=== PATIENT | female | born 1985 | race Caucasian/White ===

== ENCOUNTER → 2016-06-11 | Outpatient (CLI) | payer OTHER ==
[~2016-06-11] MED LIST: ACHD5005 PO; ALPR.25T PO; CATHETER FLUSH 10 ML SYR IV PRN; DCS100C PO; DOXY100C2 PO; FERR-57 PO; FERR325C PO; GLYB2.5T4 PO; HYDR-3583 PO; HYDR-3812 PO; IBP600T1 PO; INSASP10V SQ; IOHEXOL 350 MG/ML 100 ML (OMNIPAQUE 350) VIAL IV ONE; Ibuprofen PO; METH0.2T45 PO; MTF500T PO; MTF500TCR PO; NITR100C PO; NOVOLIN N SQ; NS 100 ML (IVPB) BAG IV ONE; ONDN4T PO; OXYC-12 PO; PREN1TAB39 PO; SMT80CT PO
--- OUTSIDE RECORDS SUMMARY | 2016-06-11 13:55 | XMS REPORT | Continuity of Care Document ---
Author Author [facility] Organization [facility] Address Unknown Phone Unavailable Allergies Active Description Code Type Severity Reaction Onset Reported/Identified Relationship to Patient Clinical Status Yes CLEAR TAPE CLEAR TAPE Mild N/A 08/24/2012 Medications Problems Date Dx Coded Attending Type Code Diagnosis Diagnosed By 11/23/2013 DANAE SEO DO Ot 285.1 AC POSTHEMORRHAG ANEMIA 11/23/2013 DANAE SEO DO Ot 285.9 ANEMIA NOS 11/23/2013 DANAE SEO DO Ot 648.21 ANEMIA-DELIVERED 11/23/2013 DANAE SEO DO Ot 648.22 ANEMIA-DELIVERED W P/P 11/23/2013 DANAE SEO DO Ot 648.81 ABN GLUCOSE RANCHO-DELIV 11/23/2013 DANAE SEO DO Ot 654.21 PREV DELIVRY W/ OR W/O MENT ANT 11/23/2013 DANAE SEO DO Ot V06.1 [id number], COMBINED [ 11/23/2013 DANAE SEO DO Ot V27.0 DELIVER-SINGLE LIVEBORN 11/23/2013 DANAE SEO DO Ot V58.67 LONG-TERM (CURRENT) USE OF INSULIN 05/01/2014 DANAE SEO DO Ot 640.03 05/01/2014 DANAE SEO DO Ot 640.03 08/09/2015 DANAE SEO DO Ot 640.03 08/16/2015 DANAE SEO DO Ot 640.03 THREATEN ABORT-ANTEPART 10/01/2015 DANAE SEO DO Ot 640.03 THREATEN ABORT-ANTEPART 06/05/2016 DANAE SEO DO Ot 640.03 THREATEN ABORT-ANTEPART Procedures Code Description Performed By Performed On 74.1 LOW CERVICAL 11/20/2013 99.77 APPL/ADMIN OF AN ADHESION BARRIER SUBSTA 11/20/2013 Results Encounters ACCT No. Visit Date/Time Discharge Status Pt. Type Provider Facility Loc./Unit Complaint [id number] 11/20/2013 10:25:00 2013 11:20:00 DIS Inpatient DANAE SEO DO [facility] LDRP PREVIOUS SECTION; RUPTURED MEMBRANES [id number] 04/21/2013 12:01:00 2012 23:59:59 CLS Outpatient DANAE SEO DO [facility] RAD BLEEDING;THREATENED
--- NOTE | 2016-06-11 14:57 | Diagnostic Imaging Report ---
PROCEDURE: CT abdomen and pelvis with contrast. TECHNIQUE: Multiple contiguous axial images were obtained through the abdomen and pelvis after administration of intravenous contrast. INDICATION: Abdominal pain. 100 mL of Omnipaque 350 is administered intravenously. FINDINGS: Lung bases appear clear. The liver, the gallbladder, the spleen, the adrenal glands appear unremarkable. The kidneys have symmetric enhancement and contrast excretion. There is no hydronephrosis. The abdominal aorta is normal in caliber. No significantly enlarged lymph nodes seen. There is diastasis of the recti and superimposed small fat-containing umbilical hernia. There is an IUD in the uterus which is retroflexed. There is no bowel obstruction. There is no free fluid or fluid collection in the abdomen or pelvis seen. The osseous structures appear grossly unremarkable. IMPRESSION: There is diastasis of the recti and a tiny fat-containing umbilical hernia. Dictated by: Dictated on workstation # [id number]
== END ==
LOC: RAD 13:52
PROVIDERS: ATTEND Nurse Practitioner Family
DX: Q79.59 Other congenital malformations of abdominal wall (principal); R10.31 Right lower quadrant pain; R10.32 Left lower quadrant pain; R10.13 Epigastric pain
CPT/HCPCS: 74177

== ENCOUNTER → 2016-07-09 | Outpatient (CLI) | payer OTHER ==
[~2016-07-09] MED LIST changes: -CATHETER FLUSH 10 ML SYR IV PRN; -IOHEXOL 350 MG/ML 100 ML (OMNIPAQUE 350) VIAL IV ONE; -NS 100 ML (IVPB) BAG IV ONE
--- OUTSIDE RECORDS SUMMARY | 2016-07-09 15:17 | XMS REPORT | Continuity of Care Document ---
Author Author [facility] Organization [facility] Address Unknown Phone Unavailable Allergies Active Description [...] ANT 11/23/2013 DANAE SEO DO Ot V06.1 [id number], COMBINED [ 11/23/2013 DANAE SEO DO Ot V27.0 DELIVER-SINGLE LIVEBORN 11/23/2013 DANAE SEO DO Ot V58.67 LONG-TERM (CURRENT) USE OF INSULIN 05/01/2014 DANAE SEO DO Ot 640.03 05/01/2014 DANAE SEO DO Ot 640.03 08/09/2015 DANAE SEO DO Ot 640.03 08/16/2015 DANAE SEO DO Ot 640.03 THREATEN ABORT-ANTEPART 10/01/2015 DANAE SEO DO Ot 640.03 THREATEN ABORT-ANTEPART 06/05/2016 DANAE SEO DO Ot 640.03 THREATEN ABORT-ANTEPART 06/16/2016 BRODIE LINDSAY APRN Ot 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 Visit Date/Time Discharge Status Pt. Type Provider Facility Loc./Unit Complaint [id number] 11/20/2013 10:25:00 2013 11:20:00 DIS Inpatient DANAE SEO DO [facility] LDRP PREVIOUS SECTION; RUPTURED MEMBRANES [id number] 04/21/2013 12:01:00 2012 23:59:59 CLS Outpatient DANAE SEO DO [facility] RAD BLEEDING;THREATENED [id number] 06/11/2016 13:52:00 ACT Outpatient BRODIE LINDSAY APRN [facility] RAD LLQ PAIN,RLQ PAIN,EPIGASTRIC PAIN
--- NOTE | 2016-07-09 19:44 | Diagnostic Imaging Report ---
Pelvic ultrasound. INDICATION: Pelvic pain. FINDINGS: There are no previous ultrasound examinations available for comparison. The CT abdomen/pelvis exam performed on 06/11/2016 did note an IUD within the uterus. On this study, the IUD is again identified within the endometrium of the body/fundus of the uterus. The IUD seems to be in good position. The uterus itself is nongravid and not enlarged measuring 4.9 x 5.2 x 4.1 cm. I do feel that the length of the uterus is under measured as the uterus appears to be retroflexed. The endometrial lining of the uterus is not thickened measuring 5-6 mm. There is no focal mass involving the uterus to suggest a fibroid. Both ovaries are identified. The ovaries are generally unremarkable. There are few subcentimeter follicles on each ovary. There is no solid pelvic mass identified, but there is a small amount of nonspecific free fluid. IMPRESSION: 1. Aside from a small amount of nonspecific free fluid, there is no acute abnormality of the pelvis. 2. There is an IUD within the endometrium of the uterus. Dictated by: Dictated on workstation # [id number]
== END ==
LOC: RAD 15:13
PROVIDERS: ATTEND Surgery
DX: R10.31 Right lower quadrant pain (principal)
CPT/HCPCS: 76830; 76856

== ENCOUNTER 2016-08-13 05:34 | Outpatient (CLI) | payer OTHER ==
[~2016-08-13] VITALS: Ht 157.5 cm; Wt 81.9 kg
[~2016-08-13 05:34] MED LIST changes: -HYDR-3812 PO; -ONDN4T PO
[2016-08-19] MEDS ORDERED: HYDR-3812 PO (09:43)
== END 2016-08-13 13:04 ==
LOC: PREOP 05:34
PROVIDERS: ATTEND Surgery
DX: Z01.818 Encounter for other preprocedural examination (principal); K43.9 Ventral hernia without obstruction or gangrene

== ENCOUNTER 2016-08-19 05:51 | Day surgery (SDC) | payer OTHER ==
[~2016-08-19] VITALS: Ht 157.5 cm; Wt 81.9 kg
[2016-08-19] MEDS ORDERED: PREGABALIN 75 MG (LYRICA) CAP PO ONE ×3 (06:15→09:45)
[2016-08-19] MEDS ORDERED: morphine INJ 4 MG/ML 1 ML (VIAL/SYRINGE) IV PRN ×2 (06:15→09:45)
[2016-08-19] MEDS ORDERED: oxyCODONE ER 10 MG (OxyCONTIN CR) TAB PO ONE ×4 (06:15→09:45)
[2016-08-19] MEDS ORDERED: ACETAMINOPHEN 500 MG TAB (TYLENOL) PO ONE ×3 (06:15→09:45)
[2016-08-19] MEDS ORDERED: CELECOXIB 100 MG (CeleBREX) CAP PO ONE ×5 (06:15→09:45)
[2016-08-19] MEDS ORDERED: LACTATED RINGERS 1,000 ML IV SCH (06:15)
[2016-08-19] MEDS ORDERED: LACTATED RINGERS 1,000 ML IV PRN (06:28)
[2016-08-19 06:30] VITALS: BP 119/74
[2016-08-19] MEDS ORDERED: FAMOTIDINE 20MG/2ML IV (PEPCID) IV ONE (06:30)
[2016-08-19] MEDS ORDERED: ONDANSETRON 4 MG/2 ML (SDV) Z0FRAN IV ONE (06:30)
[2016-08-19] MEDS ORDERED: MIDAZOLAM 2 MG/2 ML (VERSED) VIAL IV ONE (06:30)
[2016-08-19] MEDS ORDERED: DEXAMETHASONE PF 10 MG/ML (DECADRON) VIAL ONE (06:51)
[2016-08-19] MEDS ORDERED: ONDANSETRON 4 MG/2 ML (SDV) Z0FRAN ONE (06:51)
[2016-08-19] MEDS ORDERED: KETAMINE HCL 100 MG/ML 5 ML VIAL ONE (06:52)
[2016-08-19] MEDS ORDERED: ROCURONIUM 50 MG/5 ML (ZEMURON) VIAL IV ONE (06:52)
[2016-08-19] MEDS ORDERED: LIDOCAINE PF 2% 10 ML (XYLOCAINE) AMP ONE (06:52)
[2016-08-19] MEDS ORDERED: MIDAZOLAM 2 MG/2 ML (VERSED) VIAL ONE (06:52)
[2016-08-19] MEDS ORDERED: SEVOFLURANE (ULTANE) 15 ML INHAL SOLN ONE ×2 (06:52→09:57)
[2016-08-19] MEDS ORDERED: LACTATED RINGERS 1,000 ML IV ONE ×2 (06:52→09:01)
[2016-08-19] MEDS ORDERED: proPOfol 200 MG/20 ML (DIPRIVAN) VIAL IV ONE (06:52)
[2016-08-19] MEDS ORDERED: CATHETER FLUSH 10 ML SYR IV PRN (07:00)
[2016-08-19] MEDS ORDERED: ceFAZolin 1 GM/NS 50 ML IVPB IV ONE ×2 (07:00)
[2016-08-19] MEDS ORDERED: PREGABALIN 75 MG (LYRICA) CAP ONE (07:06)
[2016-08-19] MEDS ORDERED: ACETAMINOPHEN 500 MG TAB (TYLENOL) ONE (07:07)
[2016-08-19] MEDS ORDERED: NS (IVPB) 100 ML ONE (07:07)
[2016-08-19] MEDS ORDERED: morphine INJ 10 MG/ML 1ML (SYR OR VIAL) IV PRN (07:15)
[2016-08-19] MEDS ORDERED: BUP/EPI 0.25% 1:200,000 (MARCAINE) 30 ML VIAL ONE (07:19)
--- NOTE | 2016-08-19 08:17 | Progress Note-Pre Operative ---
Pre-Operative Progress Note H&P Reviewed The H&P was reviewed, patient examined and no changes noted. Date H&P Reviewed: Aug 19, 2016 Time H&P Reviewed: 08:17 Pre-Operative Diagnosis: ventral hernia AUGUSTO WHALEN MD Aug 19, 2016 8:17 am
[2016-08-19] MEDS ORDERED: meTOprolol 5 MG/5 ML (LOPRESSOR) VIAL ONE (08:31)
[2016-08-19] MEDS ORDERED: GLYCOPYRROLATE 0.2 MG/ML (ROBINUL) 2 ML VIAL ONE (09:12)
[2016-08-19] MEDS ORDERED: NEOSTIGMINE (BLOXIVERZ ) 1 MG/1ML 10 ML VIAL ONE (09:12)
[2016-08-19] MEDS ORDERED: morphine INJ 10 MG/ML 1ML (SYR OR VIAL) ONE (09:16)
[2016-08-19] MEDS ORDERED: KETOROLAC 30 MG/ML VIAL ONE (09:37)
[2016-08-19] MEDS ORDERED: HYDR-3812 PO (09:43)
--- NOTE | 2016-08-19 09:44 | Discharge Inst-Simple/Standard ---
Discharge Inst-Standard Discharge Medications New, Converted or Re-Newed RX: RX on Chart Patient Instructions/Follow Up Plan of Care/Instructions/FU: Dressings off in am. Incentive spirometry. F/U in 4 weeks Activity as Tolerated: No Goal: No lifting over 20 lb Discharge Diet: No Restrictions AUGUSTO WHALEN MD Aug 19, 2016 9:44 am
--- NOTE | 2016-08-19 09:56 | OPERATIVE REPORT ---
DATE OF SERVICE: 08/19/2016 PREOPERATIVE DIAGNOSIS: Ventral hernia. POSTOPERATIVE DIAGNOSIS: Ventral hernia. OPERATION: Robotic-assisted repair of ventral hernia with mesh placement. SURGEON: Augusto Whalen MD ANESTHESIA: General anesthesia. BLOOD LOSS: Minimal. FLUIDS: 1300 cc of crystalloid. TYPE OF WOUND: Type 1 (plain wound). INDICATION FOR PROCEDURE: This lady presented with a symptomatic ventral hernia in relation to her umbilicus. In addition, she was also found to have diastasis of recti muscles. The normal variation in anatomy with regard to diastasis was highlighted and she was offered simple repair of the ventral hernia using minimally invasive technique with robotic assistance and mesh reinforcement. Informed consent was obtained after reviewing all the details and complications including hematoma, wound infection and the recurrence of a hernia. DESCRIPTION OF PROCEDURE: She was placed supine on the operating room table and had general anesthesia induced using an endotracheal tube. Two grams of Ancef were administered intravenously for prophylaxis against wound infection. Sequential compression devices were placed around her legs to minimize the risk of venous thrombus development. The right side of her body was tilted up on a soft roll to facilitate triangulation of the robotic system. Her abdomen was prepared and draped in the usual sterile manner. Pneumoperitoneum was established using a Veress needle introducer over the right subcostal region along the mid clavicular line. Intraabdominal pressure was maintained at 15 mmHg. A 12 mm trocar was placed and anatomy visualized using the three-dimensional, high definition laparoscope associated [employer] system. A ventral hernia measuring 2 cm in diameter was confirmed. Under direct view, I placed another 10 mm trocar over the right side of abdomen along the mid axillary line, to place the camera system, followed by an 8 mm cannula over the right lower quadrant. The robotic system was then docked in place. The defect was then closed primarily using 0 V-Lock suture without any tension. It was then reinforced using a polypropylene mesh attached to a self-retaining balloon system, measuring 11.4 cm in diameter. It was held up against the abdominal wall using the balloon system and the edges were secured with 2-0 V-Lock suture with robotic assistance. Hemostasis was satisfactory and the operation concluded. Incisions were then closed using 4-0 Vicryl in a subcuticular fashion. A total of 0.025% Marcaine with epinephrine was infiltrated along the incisions and pre-emptively and at the conclusion of the operation. She tolerated the procedure well, was extubated in the operating room and taken to recovery room in a stable condition. [place], sponges and instruments were correct at the end of the operation. Job ID: [id number] DocumentID: [id number] Dictated Date: 08/19/2016 09:35:42 Credentialing Analyst Date: 08/19/2016 09:55:34 Dictated By: AUGUSTO WHALEN MD MTDD
[2016-08-19] MEDS ORDERED: fentaNYL INJECTION 100 MCG/2 ML AMP IVP PRN ×2 (10:00→12:45)
[2016-08-19] MEDS ORDERED: ONDANSETRON 4 MG/2 ML (SDV) Z0FRAN IVP PRN ×2 (10:00→12:00)
[2016-08-19] MEDS ORDERED: MEPERIDINE (DEMEROL) INJ 50 MG/ML IVP PRN (10:00)
[2016-08-19] MEDS ORDERED: morphine INJ 10 MG/ML 1ML (SYR OR VIAL) IVP PRN (10:00)
[2016-08-19 11:20] VITALS: BP 121/79
[2016-08-19] MEDS: KETOROLAC 30 MG/ML VIAL IV SCH ×2 (11:30→18:05)
[2016-08-19] MEDS ORDERED: KETOROLAC 15 MG/ML VIAL IV SCH ×2 (12:00)
[2016-08-19] MEDS ORDERED: SCOPOLAMINE 1.5 MG (TRANSDERM-SCOP) PATCH TOP SCH (15:15)
[2016-08-19] MEDS: LACTATED RINGERS 1,000 ML IV SCH (16:50)
[2016-08-19 16:55] VITALS: BP 117/63
[2016-08-19 20:55] VITALS: BP 105/58
[2016-08-20] MEDS: KETOROLAC 30 MG/ML VIAL IV SCH ×2 (00:20→05:50)
[2016-08-20 00:54] VITALS: BP 105/57
[2016-08-20] MEDS: LACTATED RINGERS 1,000 ML IV SCH (02:21)
[2016-08-20 04:04] VITALS: BP 98/62
[2016-08-20 08:00] VITALS: BP 105/62
--- NOTE | 2016-08-20 09:35 | Anesthesia-General Post-Op ---
General Patient Condition Mental Status/LOC: Same as Preop Cardiovascular: Satisfactory Nausea/Vomiting: Absent Respiratory: Satisfactory Pain: Controlled Complications: Absent Post Op Complications Complications None Follow Up Care/Instructions Patient Instructions None needed. Anesthesia/Patient Condition Patient Condition Patient is doing well, no complaints, stable vital signs, no apparent adverse anesthesia problems. No complications reported per nursing. SIMON ESCOBAR CRNA Aug 20, 2016 09:35
[2016-08-20] MEDS ORDERED: ONDN4T PO (09:57)
[2016-08-20 12:00] VITALS: BP 100/58
[2016-08-20 12:45] VITALS: BP 105/62
--- NOTE | 2016-08-20 13:13 | Progress Note-Standard ---
Standard Progress Note Progress Notes/Assess & Plan Progress/Assessment & Plan 08/20/16: Doing well. Mild postoperative nausea currently improved with scopolamine patch. We'll be discharged on Zofran. Final Diagnosis Ventral hernia AUGUSTO WHALEN MD Aug 20, 2016 1:13 pm
[2016-08-22] MEDS ORDERED: PATCH REMOVAL TP SCH (15:00)
== END 2016-08-20 12:45 | disposition home or self-care (01) ==
LOC: SDC 05:51 → 4TH 11:15 → ENPENDDIS 08-20 11:00 → SDC 08-20 12:45
PROVIDERS: ATTEND Surgery
DX: K43.9 Ventral hernia without obstruction or gangrene (principal); Z11.2 Encounter for screening for other bacterial diseases
CPT/HCPCS: 36415; 82565; 82962; 84703; 87081; 94664

== ENCOUNTER → 2017-11-04 | Outpatient (CLI) | payer OTHER ==
[~2017-11-04] MED LIST changes: +ONDN4T PO
--- NOTE | 2017-11-04 16:04 | Diagnostic Imaging Report ---
INDICATION: Pelvic pain, dysfunctional uterine bleeding. Patient has had an intrauterine contraceptive device for 4 years with no periods in the interval until recent episode of heavy bleeding. TECHNIQUE: Multiple real time pinto scale sonographic images were obtained of the pelvis transabdominally and transvaginally. CORRELATION STUDY: 07/09/2016 FINDINGS: UTERUS/ENDOMETRIUM: Uterus measures 6.8 x 5.0 x 4.1 cm. Endometrial thickness is 4 mm. Intrauterine contraceptive device is present within the endometrial canal. There is a small amount of fluid within the endometrial canal to the left of the IUD. RIGHT OVARY: 3.3 x 2.3 x 1.9 cm. LEFT OVARY: 3.1 x 1.5 x 2.4 cm. Likely physiologic small cysts and/or follicles are present. Vascular flow is demonstrated to both ovaries. No significant free pelvic fluid. IMPRESSION: 1. Intrauterine contraceptive device is in the endometrial canal. Small amount of nonspecific fluid is noted within endometrial canal. Dictated by: Dictated on workstation # [id number]
== END ==
LOC: RAD 14:50
PROVIDERS: ATTEND Nurse Practitioner
DX: N93.8 Other specified abnormal uterine and vaginal bleeding (principal); Z97.5 Presence of (intrauterine) contraceptive device
CPT/HCPCS: 76830; 76856